=== PATIENT | male | born 1965 ===

== ENCOUNTER 2023-03-14 05:22 | Day surgery (SDC) | payer OTHER ==
[2023-03-12 12:29] VITALS: BMI 32.9
[2023-03-14] MEDS ORDERED: LIDOCAINE HCL/PF 2% SDV 5ML VIAL ONE (12:31)
[2023-03-14] MEDS ORDERED: MIDAZOLAM HCL 2 MG/2 ML SINGLE DOSE VIAL ONE (12:31)
[2023-03-14] MEDS ORDERED: PROPOFOL 40 ML ONE (12:31)
[2023-03-14] MEDS ORDERED: ceFAZolin SODIUM 1 GM VIAL IVPB ONE (13:52)
[2023-03-14] MEDS ORDERED: oxyCODONE HCL 5 MG TABLET PO PRN (14:07)
[2023-03-14] MEDS ORDERED: LACTATED RINGERS SOLUTION 1,000 ML IV SCH (14:15)
[2023-03-14 15:41] VITALS: RESP 18; TEMP 97.8
[2023-03-14 17:38] VITALS: BP 115/54; PULSE 66
== END 2023-03-14 16:12 | disposition home or self-care (01) ==
LOC: JASU-SURG 05:22
PROVIDERS: ATTEND Urology
PROC: 0T9B80Z Drainage of Bladder with Drainage Device, Via Natural or Artificial Opening Endoscopic (ICD-10-PCS; 2023-03-14)
PROC: 0TND8ZZ Release Urethra, Via Natural or Artificial Opening Endoscopic (ICD-10-PCS; principal; 2023-03-14 13:00)
PROC: 0T7D8ZZ Dilation of Urethra, Via Natural or Artificial Opening Endoscopic (ICD-10-PCS; 2023-03-14 13:00)
DX: N35.912 Unspecified bulbous urethral stricture, male (principal); N32.89 Other specified disorders of bladder
CPT/HCPCS: 94760